=== PATIENT | female | born 1975 | race Caucasian/White ===

== ENCOUNTER 2018-01-07 09:28 | Emergency (ER) | payer OTHER ==
[2018-01-07 10:07] VITALS: BP 154/74
--- NOTE | 2018-01-07 10:15 | UC ---
General HPI - HPI Summary HPI Summary: Patient's a 42-year-old female who presents to urgent care reporting for the last 2-3 days she feels discomfort impression her left ear. Patient states she feels dizzy when she turns her head quickly. Patient states she first stands up she feels lightheaded but are resolved. Patient denies chest pain or shortness of breath. Patient denies sinus or nasal congestion. No sore throat. Patient has been eating and drinking but states her appetite them down. No diarrhea. No dysuria. No abdominal pain. No nausea vomiting. Patient states she is on -control no concerns of . No sick contacts. No history of similar. Patient's medications reviewed this visit. - History of Current Complaint Chief Complaint: UCGeneralIllness Stated Complaint: LIGHTHEADED Time Seen by Provider: 01/07/18 10:11 Hx Obtained From: Patient Hx Last Menstrual Period: august Onset/Duration: Gradual Onset Timing: Intermittent Episodes Lasting: - brief Current Severity: Mild - left ear Pain Intensity: 2 - Allergy/Home Medications Allergies/Adverse Reactions: Allergies Allergy/AdvReac Type Severity Reaction Status Date / Time Penicillins Allergy Rash Verified 01/07/18 09:53 Home Medications: Home Medications Multivitamin [Multivitamins] 1 cap PO DAILY 01/07/18 [History Confirmed 01/07/18 ] Norethindrone [Deblitane] 0.35 mg PO DAILY 01/07/18 [History Confirmed 01/07/18] raNITIdine HCl [Gnp Acid Control 150 Maxi] 150 mg PO BID 01/07/18 [History Confirmed 01/07/18] PMH/Surg Hx/FS Hx/Imm Hx Previously Healthy: Yes - Surgical History Surgical History: None - Family History Known Family History: Positive: Non-Contributory - Social History Occupation: Unemployed Lives: With Family Alcohol Use: None Substance Use Type: None Smoking Status (MU): Never Smoked Tobacco Review of Systems All Other Systems Reviewed And Are Negative: Yes Constitutional: Positive: Negative Eyes: Positive: Negative ENT: Positive: Ear Ache Respiratory: Positive: Negative Neurological: Positive: Negative Physical Exam - Summary Physical Exam Summary: Vital Signs Reviewed: Yes A+Ox3, no distress Eyes: Conjunctiva Clear, JOSE CRUZ. EOM intact and full, + 2 beat nystagmus to left ENT: Hearing grossly normal, fluid left TM with mild erythema, turbinates mild inflamed,. no sinus pain, mmoist, uvula midline, no exudate, no erythema Neck: Positive: Supple Respiratory: Positive: No respiratory distress, No accessory muscle use + CTA throughout no w/r Cardiovascular: RRR nl s1, s2 no m/r CBT <2 sec, no bruits abd soft + BS nt/nd no guarding, no distension Musculoskeletal Exam: REYNA x 4 without difficulty Strength Intact, ROM Intact Neurological: Positive: Alert, + sensation throughout Psychological: Positive: Normal Response To Family Skin: Positive: no rash, no ecchymosis Triage Information Reviewed: Yes Vital Signs: Initial Vital Signs Temp 97.9 F 01/07/18 10:04 Pulse 108 01/07/18 10:04 Resp 16 01/07/18 10:04 BP 154/74 01/07/18 10:04 Pulse Ox 100 01/07/18 10:04 Course/Dx - Course Course Of Treatment: Patient presents to urgent care reporting episodes of feeling lightheaded and dizzy. Patient states she also has (pressure in the left ear. Patient states progressive and intermittent for last 2 days. On exam patient with fluid and erythema in the left ear. Patient with to be extension nystagmus a left. Suspect this is the origin of her lightheadedness. Encourage patient to stay hydrated. Eat and drink regular meals. Flonase, antibiotics given. Recommend patient contact PCP for follow-up. Strict return precautions. Patient comfortable in agreement with plan. - Differential Dx - Multi-Symptom Provider Diagnoses: left OM Discharge - Sign-Out/Discharge Documenting (check all that apply): Patient Departure All imaging exams completed and their final reports reviewed: No Studies - Discharge Plan Condition: Stable Disposition: HOME Prescriptions: Azithromycin TAB* [Zithromax TAB (Z-VEGA) 250 mg #6 tabs] 2 tab PO .TODAY, THEN 1 DAILY #1 vega Fluticasone NASAL SPRAY 50MCG* [Flonase NASAL SPRAY 50MCG*] 2 spray BOTH NARES DAILY #1 btl Patient Education Materials: Vertigo (ED), Ear Infection (ED) Referrals: Jhonatan EMERSON,Jacobo Montez [Primary Care Provider] - Additional Instructions: - stay well hydrated. Drink plenty of non-alcoholic, non caffinated beverages - use nasal spray daily as prescribed - Okay to take Tylenol every 6 hours as needed for fever or pain - slowly change position - lying to sitting, sitting to standing - contact your doctor to schedule a follow-up appointment next week. Contact your doctor or go to the emergency department if you develop chest pain, shortness of breath, fevers, or any other concerns - Billing Disposition and Condition Condition: STABLE Disposition: Home
== END 2018-01-07 10:31 | disposition home or self-care (01) ==
LOC: UCCORT 09:28
DX: H66.92 Otitis media, unspecified, left ear (principal); Z88.0 Allergy status to penicillin
CPT/HCPCS: 99212; G0463